=== PATIENT | male | born 1965 | race Caucasian/White ===

== ENCOUNTER 2017-12-31 04:59 | Emergency (ER) | payer SELFPAY ==
--- NOTE | 2017-12-31 07:06 | ER ---
Nurse's Notes [facility] Name: Turner Cope Age: 52 yrs Sex: Male : 1965 Arrival Date: 12/31/2017 Time: 05:06 Bed 16 Private MD: Diagnosis: Postconcussional syndrome;Acute ethmoidal sinusitis;Acute frontal sinusitis, unspecified Presentation: 12/31 05:07 Presenting complaint: EMS states: Pt complaining of flutter sound in the left ear that ea makes him feel dizzy, weak and tingly. Reports when episodes occur he starts having vision loss and right and left head tingling. Pt reports he fell last week and hit the back of his head, denied LOC. Reports he has had 3 episodes since then but reported this was the worst. Transition of care: patient was not received from another setting of care. Onset of symptoms was December 31, 2017. Risk Assessment: Do you want to hurt yourself or someone else? Patient reports no desire to harm self or others. Initial Sepsis Screen: Does the patient meet any 2 criteria? No. Patient's initial sepsis screen is negative. Does the patient have a suspected source of infection? No. Patient's initial sepsis screen is negative. Care prior to arrival: None. 05:07 Method Of Arrival: EMS: [facility] ea 05:07 Acuity: GRAY 3 ea Triage Assessment: 05:12 General: Appears uncomfortable, Behavior is calm, cooperative, appropriate for age. ea Pain: Denies pain. EENT: Reports flutter to left ear. Neuro: Level of Consciousness is awake, alert, obeys commands, Oriented to person, place, time, situation. Neuro: Reports blurred vision dizziness, weakness when flutter occurs. Cardiovascular: Patient's skin is warm and dry. Respiratory: Airway is patent Respiratory effort is even, unlabored, Respiratory pattern is regular, symmetrical. GI: No signs and/or symptoms were reported involving the gastrointestinal system. : No signs and/or symptoms were reported regarding the genitourinary system. Derm: Skin is pink, warm \T\ dry. Musculoskeletal: Circulation, motion, and sensation intact. Historical: - Allergies: 05:12 No Known Allergies; ea - Home Meds: 05:12 Albuterol Nebulizer [Active]; ea - PMHx: 05:12 COPD; ea - PSHx: 05:12 None; ea - Immunization history:: Adult Immunizations unknown. - Social history:: Smoking status: Patient uses tobacco products, smokes one pack cigarettes per day. - Ebola Screening: : No symptoms or risks identified at this time. - Family history:: not pertinent. - Hospitalizations: : No recent hospitalization is reported. Screenin:11 Abuse screen: Denies threats or abuse. Nutritional screening: No deficits noted. ea Tuberculosis screening: No symptoms or risk factors identified. Fall Risk None identified. Assessment: 05:19 Reassessment: See triage assessment. ea 06:50 Reassessment: Patient and/or family updated on plan of care and expected duration. Pain ea level reassessed. Patient is alert, oriented x 3, equal unlabored respirations, skin warm/dry/pink. 07:17 Reassessment: Patient and/or family updated on plan of care and expected duration. Pain ea level reassessed. Patient is alert, oriented x 3, equal unlabored respirations, skin warm/dry/pink. Discharge instructions given to patient, verbalized the understanding of instruction. Patient denies pain at this time. Patient states feeling better. Patient states symptoms have improved. Vital Signs: 05:07 BP 112 / 95; Pulse 87; Resp 20; Temp 98(O); Pulse Ox 94% on R/A; Weight 115.67 kg; ea Height 5 ft. 6 in. (167.64 cm); Pain 0/10; 06:00 BP 114 / 55; Pulse 93; Resp 18; Pulse Ox 98% on R/A; Pain 0/10; ea 07:13 BP 116 / 56; Pulse 83; Resp 18; Temp 97.8(O); Pulse Ox 98% on R/A; Pain 0/10; ea 05:07 Body Mass Index 41.16 (115.67 kg, 167.64 cm) ea Chandrika Coma Score: 05:25 Eye Response: spontaneous(4). Verbal Response: oriented(5). Motor Response: obeys rn commands(6). Total: 15. 06:50 Eye Response: spontaneous(4). Verbal Response: oriented(5). Motor Response: obeys rn commands(6). Total: 15. ED Course: 05:06 Patient arrived in ED. ea 05:10 Triage completed. ea 05:10 Arm band placed on left wrist. Patient placed in an exam room, on a stretcher. ea 05:14 Theodore Simon MD is Attending Physician. rn 05:18 Patient has correct armband on for positive identification. Bed in low position. Call ea light in reach. Side rails up X2. 05:19 Karen Schmid, RN is Primary Nurse. ea 06:[address] via wheelchair. kw1 06:26 CT Head Brain wo Cont In Process Unspecified. EDMS 06:26 CT completed. Patient tolerated procedure well. Patient moved back from CT. kw1 07:01 Jaime Ospina PA is PHCP. jmrachelle 07:05 Lino Jaffe MD is Referral Physician. rn 07:14 No provider procedures requiring assistance completed. Patient did not have IV access ea during this emergency room visit. Administered Medications: No medications were administered Outcome: 07:05 Discharge ordered by MD. rn 07:17 Discharged to home ambulatory, with family. ea 07:17 Condition: improved 07:17 Discharge instructions given to patient, Instructed on discharge instructions, follow up and referral plans. medication usage, Demonstrated understanding of instructions, follow-up care, medications. 07:18 Patient left the ED. ea Signatures: Dispatcher [employer] EDVA Jaime Ospina PA PA Theodore Hoffman MD MD rn Antunez, Elena, RN RN Leonor José kw1
--- NOTE | 2017-12-31 07:06 | EDPHYS ---
Physician Documentation [facility] Name: Turner Cope Age: 52 yrs Sex: Male : 1965 Arrival Date: 12/31/2017 Time: 05:06 Bed 16 Private MD: ED Physician Theodore Simon HPI: 12/31 05:25 This 52 yrs old Male presents to ER via EMS with complaints of head injury, rn headache. 05:25 The patient or guardian reports injury. The complaints affect the back of head. Context rn of injury: The problem was sustained at work, resulted from a fall. Onset: The symptoms/episode began/occurred 1 week(s) ago. Associated signs and symptoms: Loss of consciousness: This patient did not experience any loss of consciousness. Pertinent positives: headache, injury, Pertinent negatives: the patient has not experienced a loss of conciousness, neck pain, seizure, shortness of breath, vomiting, weakness in extremities, generalized weakness. Severity of symptoms: At their worst the symptoms were mild, in the emergency department the symptoms have improved. The patient has not experienced similar symptoms in the past. Reports fell at work, hit head about a week ago, since then has been having intermittent dizziness, vision changes, headache, not worst headache of his life, no vomiting, no focal neurological complaints, still able to work and walk/get around. . Historical: - Allergies: 05:12 No Known Allergies; ea - Home Meds: 05:12 Albuterol Nebulizer [Active]; ea - PMHx: 05:12 COPD; ea - PSHx: 05:12 None; ea - Immunization history:: Adult Immunizations unknown. - Social history:: Smoking status: Patient uses tobacco products, smokes one pack cigarettes per day. - Ebola Screening: : No symptoms or risks identified at this time. - Family history:: not pertinent. - Hospitalizations: : No recent hospitalization is reported. ROS: 05:25 Constitutional: Negative for fever, chills, and weight loss, Eyes: Negative for injury, rn pain, redness, and discharge, Neck: Negative for injury, pain, and swelling, Cardiovascular: Negative for chest pain, palpitations, and edema, Respiratory: Negative for shortness of breath, cough, wheezing, and pleuritic chest pain, Abdomen/GI: Negative for abdominal pain, nausea, vomiting, diarrhea, and constipation, MS/Extremity: Negative for injury and deformity, Skin: Negative for injury, rash, and discoloration, Neuro: Negative for numbness, tingling, and seizure Exam: 05:25 Constitutional: This is a well developed, well nourished patient who is awake, alert, rn and in no acute distress. Head/Face: Normocephalic, atraumatic. Eyes: Pupils equal round and reactive to light, extra-ocular motions intact. Lids and lashes normal. Conjunctiva and sclera are non-icteric and not injected. Cornea within normal limits. Periorbital areas with no swelling, redness, or edema. Neck: Trachea midline, no thyromegaly or masses palpated, and no cervical lymphadenopathy. Supple, full range of motion without nuchal rigidity, or vertebral point tenderness. No Meningismus. Cardiovascular: Regular rate and rhythm with a normal S1 and S2. No gallops, murmurs, or rubs. Normal PMI, no JVD. No pulse deficits. Respiratory: Lungs have equal breath sounds bilaterally, clear to auscultation and percussion. No rales, rhonchi or wheezes noted. No increased work of breathing, no retractions or nasal flaring. Abdomen/GI: Soft, non-tender, with normal bowel sounds. No distension or tympany. No guarding or rebound. No evidence of tenderness throughout. MS/ Extremity: Pulses equal, no cyanosis. Neurovascular intact. Full, normal range of motion. Equal circumference. Neuro: Awake and alert, GCS 15, oriented to person, place, time, and situation. Cranial nerves II-XII grossly intact. Motor strength 5/5 in all extremities. Sensory grossly intact. Cerebellar exam normal. Vital Signs: 05:07 BP 112 / 95; Pulse 87; Resp 20; Temp 98(O); Pulse Ox 94% on R/A; Weight 115.67 kg; ea Height 5 ft. 6 in. (167.64 cm); Pain 0/10; 06:00 BP 114 / 55; Pulse 93; Resp 18; Pulse Ox 98% on R/A; Pain 0/10; ea 07:13 BP 116 / 56; Pulse 83; Resp 18; Temp 97.8(O); Pulse Ox 98% on R/A; Pain 0/10; ea 05:07 Body Mass Index 41.16 (115.67 kg, 167.64 cm) ea Chandrika Coma Score: 05:25 Eye Response: spontaneous(4). Verbal Response: oriented(5). Motor Response: obeys rn commands(6). Total: 15. 06:50 Eye Response: spontaneous(4). Verbal Response: oriented(5). Motor Response: obeys rn commands(6). Total: 15. MDM: 05:14 Patient medically screened. rn 06:50 ED course: Ambulatory to bathroom without assistance. rn 06:50 Differential diagnosis: Contusion of Intracranial bleed- Concussion post-concussive rn syndrome. Data reviewed: vital signs, nurses notes. 06:51 Special discussion: Based on the history and exam findings, there is no indication for rn further emergent testing or inpatient evaluation. I discussed with the patient/guardian the need to see the neurologist for further evaluation of the symptoms. 07:05 Counseling: I had a detailed discussion with the patient and/or guardian regarding: the rn historical points, exam findings, and any diagnostic results supporting the discharge/admit diagnosis, radiology results, the need for outpatient follow up, to return to the emergency department if symptoms worsen or persist or if there are any questions or concerns that arise at home. 12/31 05:09 Order name: CT Head Brain wo Cont rn Administered Medications: No medications were administered Disposition: 12/31/17 07:05 Discharged to Home. Impression: Postconcussional syndrome, Acute ethmoidal sinusitis, Acute frontal sinusitis, unspecified. - Condition is Stable. - Discharge Instructions: Post-Concussion Syndrome, Sinusitis, Adult. - Prescriptions for Augmentin 875- 125 mg Oral Tablet - take 1 tablet by ORAL route every 12 hours for 10 days; 20 tablet. - Medication Reconciliation Form, Thank You Letter, Antibiotic Education, Prescription Opioid Use form. - Follow up: Lino Jaffe MD; When: As needed; Reason: Recheck today's complaints, Re-evaluation by your physician. - Problem is an ongoing problem. - Symptoms have improved. Signatures: Dispatcher [employer] EDMS Theodore Simon MD MD rn Antunez, Elena, RN RN ea Corrections: (The following items were deleted from the chart) 07:18 07:05 12/31/2017 07:05 Discharged to Home. Impression: Postconcussional syndrome; Acute ea ethmoidal sinusitis; Acute frontal sinusitis, unspecified. Condition is Stable. Forms are Medication Reconciliation Form, Thank You Letter, Antibiotic Education, Prescription Opioid Use. Follow up: Lino Jaffe; When: As needed; Reason: Recheck today's complaints, Re-evaluation by your physician. Problem is an ongoing problem. Symptoms have improved. rn
--- NOTE | 2017-12-31 08:48 | RAD REPORT ---
EXAM DESCRIPTION: CT - Head Brain Wo Cont - 12/31/2017 7:11 am CLINICAL HISTORY: Headache, dizziness, weakness. A preliminary written report was provided at the time of the study, and the report was reviewed prio r to final dictation. COMPARISON: CT study June 2009 TECHNIQUE: Axial 5 mm thick images of the head were obtained without IV contrast. All CT scans are performed using dose optimization technique as appropriate and may include automated exposure control or mA/KV adjustment according to patient size. FINDINGS: No intracranial hemorrhage, mass, edema or shift of mid-line structures. No acute infarcti on changes seen. No abnormal extra-axial fluid collections. Ventricles are normal. Mastoid air cells and visualized portions of the paranasal sinuses are clear. No acute bony findings. No significant change from comparison. IMPRESSION: Negative non-contrast CT head examination.
== END 2017-12-31 07:18 | disposition home or self-care (01) ==
LOC: ER 04:59
DX: F07.81 Postconcussional syndrome (principal); J01.20 Acute ethmoidal sinusitis, unspecified; J01.10 Acute frontal sinusitis, unspecified; F17.210 Nicotine dependence, cigarettes, uncomplicated; J44.9 Chronic obstructive pulmonary disease, unspecified; W19.XXXA Unspecified fall, initial encounter
CPT/HCPCS: 70450; 99284

== ENCOUNTER 2020-03-06 12:50 | Emergency (ER) | payer SELFPAY, OTHER ==
[2020-03-06] MEDS ORDERED: KETOROLAC 30 MG/ML INJ ONE (13:29)
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
[2020-03-06 14:58] VITALS: BP 130/86; TEMP 98.5
[2020-03-06 14:59] VITALS: O2SAT 95
== END 2020-03-06 14:54 | disposition home or self-care (01) ==
LOC: ER 12:50
DX: M54.2 Cervicalgia (principal); M25.522 Pain in left elbow; V28.0XXA Motorcycle driver injured in noncollision transport accident in nontraffic accident, initial encounter; I10 Essential (primary) hypertension; E11.9 Type 2 diabetes mellitus without complications; E78.5 Hyperlipidemia, unspecified; J44.9 Chronic obstructive pulmonary disease, unspecified
CPT/HCPCS: 70450; 72125; 72128; 96374; 99284